=== PATIENT | male | born 1965 | race Caucasian/White ===

== ENCOUNTER 2019-01-15 06:59 | Inpatient (IN) ==
--- NOTE | 2018-12-16 17:20 | PAT Medication Instructions ---
Medication Instructions Date of Service December 17, 2018 Home Medications multivit with min-folic acid-lutein 400 mcg-250 mcg chewable tablet 1 tab PO QAM omega-3 fatty acids 1,000 mg capsule 1,000 mg PO QAM calcium carbonate-vitamin D3 [Calcium 600 + D(3)] 2 cap PO QAM [id number]-bosw [Osteo Bi-Flex Triple Strength] 2 tab PO QAM STOP taking 2 weeks before surgery multivit with min-folic acid-lutein 400 mcg-250 mcg chewable tablet 1 tab PO QAM omega-3 fatty acids 1,000 mg capsule 1,000 mg PO QAM [id number] [Osteo Bi-Flex Triple Strength] 2 tab PO QAM DO NOT take the morning of surgery calcium carbonate-vitamin D3 [Calcium 600 + D(3)] 2 cap PO QAM Take morning of surgery NOTHING TO EAT OR DRINK AFTER MIDNIGHT Other Notes If you have any questions please call us at [phone] or [phone] or [phone] or [phone]
--- NOTE | 2018-12-17 12:06 | Anesthesiology Consultation ---
Date of Service December 17, 2018 Assessment & Plan (1) Encounter for pre-operative examination: - No previous anesthesia records available. Chart Review Chart Review: Acceptable Risk for Surgery (Pending medical clearance from PCP on 12/25. Otherwise acceptable risk for surgery) and Patient seen in Pre Admission Testing Consults Requested medical (Dr. Silverman (12/25)) Teaching & Discussion Pre-Anesthesia Teaching/Discussion Notes: Instructed NPO after midnight before surgery, except medications with 15 cc of water. Medication instructions provided according to the PAT guidelines. History Surgery Operation Date: 01/15/19 09:05 Proposed Procedures p Left Total Hip Arthroplasty - Vargas Capellan MD Height/Weight Height: 6 ft Weight: 109.7 kg Allergies Allergy/AdvReac Type Severity Reaction Status Date / Time No Known Allergies Allergy Verified 12/10/18 09:09 Medications Home Medications Medication Instructions Recorded Confirmed Last Taken multivit with min-folic 1 tab PO QAM 10/13/18 12/10/18 Unknown acid-lutein 400 mcg-250 mcg chewable tablet omega-3 fatty acids 1,000 mg 1,000 mg PO QAM 10/13/18 12/10/18 Unknown capsule calcium carbonate-vitamin D3 2 cap PO QAM 12/10/18 12/10/18 Unknown [Calcium 600 + D(3)] [id number]-bosw 2 tab PO QAM 12/10/18 12/10/18 Unknown [Osteo Bi-Flex Triple Strength] Past Medical History Medical History Knee pain RIGHT = PER PT HE IS HAVING PLASMA REPLACEMENT PROCEDURE DONE IN OFFICE BEFORE SURGERY. DR CAPELLAN IS AWARE Osteoarthritis Retinal defect LEFT EYE Exercise / Class Metabolic Activity 1 > 8 Run/Swim/Ski/Tennis (Average 6 miles per day walking. Works out 5 days per week. Cares for parents. Does yard work. Can climb FOS. Denies CP or SOB with activity. ) Past Family History Family History Father Familial hemochromatosis Kidney stones Lung disease Mother Hypertension Aunt Breast cancer Past Surgical History Surgical History History of colonoscopy No pertinent past surgical history Past Anesthesia History No Hx of Anesthesia Complications and No Family Hx of Anesthesia Complications History of PONV No Hx of PONV and No Hx of Motion Sickness Social History Smoking Status: Never smoker Do You Dip or Chew Tobacco: Yes (Advised) Hx Alcohol Use: Yes Alcohol type: beer alcohol intake frequency: a few times a week Hx Substance Use: No Review of Systems Patient denies chest pain, shortness of breath, dyspnea on exertion, reflux, cough, wheezing, palpitations. +Joint Pain (Knee, Hip) Physical Exam Vital Signs BP: 129/87 P: 52 R: 16 T: 97.8 SPO2: 97% on RA ENMT Thyromental Distance: > or= 3.5 Finger Breadths (4) Mallampati Class: I Neck normal visual inspection and + facial hair; neck extension not limited Respiratory normal respiratory effort Auscultation: lungs clear to auscultation bilaterally Cardiovascular Rate/Rhythm: regular rate and regular rhythm Heart Sounds: no murmur Neurologic moves all extremities Psychiatric Orientation: alert and oriented x 3 Testing Laboratory Results 12/17/18 12:37 12/17/18 12:37 PT 10.3 Seconds (9.0-12.0) 12/17/18 12:37 INR 1.0 (0.9-1.1) 12/17/18 12:37 APTT 25.6 Seconds (21.0-31.0) 12/17/18 12:37 Hemoglobin A1c 5.4 % (4.5-5.6) 12/17/18 12:37 Urine Color Dark Yellow 12/17/18 Unknown Urine Appearance Clear (Clear) 12/17/18 Unknown Urine pH 5.0 (4.5-7.5) 12/17/18 Unknown Ur Specific [place] 1.026 (1.000-1.030) 12/17/18 Unknown Urine Protein Negative (Negative) 12/17/18 Unknown Urine Glucose (UA) Negative (Negative) 12/17/18 Unknown Urine Ketones Negative (Negative) 12/17/18 Unknown Urine Nitrite Negative (Negative) 12/17/18 Unknown Ur Leukocyte Esterase Negative (Negative) 12/17/18 Unknown Blood Type A Positive 12/17/18 12:37 Antibody Screen NEGATIVE 12/17/18 12:37 12/17/18 Unknown Urine Culture - Preliminary Urine,Clean Catch No growth - Less than 1,000 colonies/mL, Final report to follow. 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 States that he has always been bradycardic on yearly EKGs for work)
[2018-12-17 14:09] LABS: Basophils # (auto) 0.01 K/uL (0-0.2); Basophils % (auto) 0.2 %; Eosinophils # (auto) 0.05 K/uL (0-0.5); Eosinophils % (auto) 0.9 %; Hematocrit (blood only) 45.4 % (42-52); Immature Granulocytes # (auto) 0.02 K/uL (0.00-0.02); Immature Granulocytes % (auto) 0.4 %; Lymphocytes # (auto) 1.77 K/uL (1.2-3.4); Lymphocytes % (auto) 32.3 %; Mean Corpuscular Hemoglobin 31.2 pg (25-34); Mean Corpuscular Hgb Conc 35.2 g/dL (32-36); Mean Corpuscular Volume 88.5 fL (80-100); Mean Platelet Volume 10.5 fL (7.4-10.4); Monocytes # (auto) 0.55 K/uL (0.11-0.59); Neutrophils # (auto) 3.08 K/uL (1.4-6.5); Neutrophils % (auto) 56.2 %; Platelet Count 275 K/uL (130-400); RDW Coefficient of Variation 12.4 % (11.5-14.5); RDW Standard Deviation 39.7 fL (36.4-46.3); Red Blood Count 5.13 M/uL (4.7-6.1); White Blood Count 5.48 K/uL (4.8-10.8)
[2018-12-17 14:15] LABS: Estimated Average Glucose 108 mg/dl; Hemoglobin A1C 5.4 % (4.5-5.6)
[2018-12-17 14:21] LABS: Albumin Level 3.8 gm/dl (3.4-5.0); BUN Creatinine Ratio 14.8 (10-20); Calcium 8.9 mg/dl (8.5-10.1); Creatinine Clr Calc Pharmacy 104.7 ml/min; Est GFR (African American) 95.5; Est GFR (Non-African American) 82.4; Potassium 4.5 mmol/L (3.5-5.1)
[2018-12-17 14:24] LABS: Albumin Globulin Ratio 1.1 (0.9-2); Bilirubin,Total 0.7 mg/dl (0.2-1); Globulin 3.6 gm/dl (2.5-4.0); Total Protein 7.4 gm/dl (6.4-8.2)
[2018-12-17 14:28] LABS: Partial Thromboplastin Ratio 0.9; Partial Thromboplastin Time 25.6 Seconds (21.0-31.0); Prothrombin Time 10.3 Seconds (9.0-12.0)
[2018-12-17 14:39] LABS: Appearance Urine Clear (Clear); Bilirubin Urine Negative (Negative); Blood Urine Negative (Negative); Color Urine Dark Yellow; Glucose Urine UA Negative (Negative); Ketones Urine Negative (Negative); Leukocyte Esterase Urine Negative (Negative); Nitrite Urine Negative (Negative); Protein Urine Negative (Negative); Specific Gravity Urine 1.026 (1.000-1.030); Urobilinogen Urine Negative (Negative)
--- NOTE | 2018-12-17 15:10 | History & Physical Report ---
Date of Service December 17, 2018 Assessment & Plan (1) Primary osteoarthritis of left hip: DIAGNOSIS: Left hip osteoarthritis. PROCEDURE: Left total hip arthroplasty. PLAN: The patient is scheduled to undergo this procedure at [facility] as an inpatient on January 15, 2018. Risks and complications of the procedure, such as infection, bleeding, pain, scarring, nerve, blood vessel damage, weakness, wound problems, stiffness, incomplete relief of symptoms, hardware failure, hardware loosening, wear, fracture, tendon or ligament injury, dislocation, leg length inequality, blood clots, embolism, heart attack, stroke, and were explained to patient by Dr. Hutton at his visit on October 24. Informed consent to perform the procedure was obtained at that time. We will also obtain preoperative medical clearance from the patient's primary care provider, Dr. Silverman, along with preoperative CBC with differential, complete metabolic panel, PT, INR, blood type and screen, urinalysis, urine culture, EKG, hemoglobin A1c, and a nasal culture for MRSA. The patient states he has an appointment with anesthesia for clearance this afternoon and will obtain necessary testing at that time. States that he sees Dr. Silverman in the next few weeks and will have him sign off on the surgery. The patient was advised that he will be provided with prescription for pain medication and anti-inflammatory agents upon discharge from the hospital. I advised him that he will meet with case management to decide on postoperative rehabilitation be it outpatient or in-home therapy. He states he does have a walker he will bring with him on the day of surgery. He states that he had already purchase most of the things that are included in the hip kit. Additional things that he will purchase for the procedure. Have provided him with paperwork for handicap placadrian to use for 6 months postoperatively. We discussed the use of antibiotics prior to dental procedures after joint replacement surgery. I also provided him with information about lectures offered by [facility] in regards to joint replacement surgery. The patient a list of questions that he brought with him that were answered during today's visit. He is very appreciative of the care that he received in our clinic today, verbalized understanding of all information provided, and states if he or his have any other additional questions, they will contact the clinic accordingly. History of Present Illness Chief Complaint: Left hip pain Primary Care Provider: Howard Silverman MD HISTORY OF PRESENT ILLNESS: This 53-year-old male presents to clinic today for his preoperative history and physical. The patient complains of a 1-plus-year history of persistent left hip pain that is most localized to his anterior groin area. The patient states that he has been evaluated in our clinic by Dr. Whitehead, had physical therapy for several months, used oral nonsteroidal agents, and had a steroid injection into his hip. He states that all of these regimens provided minimal relief. 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 The patient states that the pain has become constant and it is affecting his activities of daily living. PAST MEDICAL HISTORY: None. PAST SURGICAL HISTORY: Colonoscopy and wisdom tooth extraction. FAMILY HISTORY: Positive for hypertension, osteoarthritis, and cancer. ALLERGIES: The patient has no known drug allergies. CURRENT MEDICATIONS: Aleve 220 mg tablets as needed for pain. SOCIAL HISTORY: The patient denies a history of tobacco or illicit drug use. States that he consumes between 5 and 6 alcoholic beverages per week. Allergies Allergy/AdvReac Type Severity Reaction Status Date / Time No Known Allergies Allergy Verified 12/10/18 09:09 Home Medications Home Medications Medication Instructions Recorded Confirmed Type multivit with min-folic 1 tab PO QAM 10/13/18 12/10/18 History acid-lutein 400 mcg-250 mcg chewable tablet omega-3 fatty acids 1,000 mg 1,000 mg PO QAM 10/13/18 12/10/18 History capsule calcium carbonate-vitamin D3 2 cap PO QAM 12/10/18 12/10/18 History [Calcium 600 + D(3)] [id number]-bosw 2 tab PO QAM 12/10/18 12/10/18 History [Osteo Bi-Flex Triple Strength] Past Med/Surg History Medical History Knee pain RIGHT = PER PT HE IS HAVING PLASMA REPLACEMENT PROCEDURE DONE IN OFFICE BEFORE SURGERY. DR CAPELALN IS AWARE Osteoarthritis Retinal defect LEFT EYE Surgical History History of colonoscopy No pertinent past surgical history Family History Father Familial hemochromatosis Kidney stones Lung disease Mother Hypertension Aunt Breast cancer Social History Preferred Language: Swedish Communication Ability: Effective Beliefs That Will Affect Care: None Current Living Situation: Spouse Feels Safe at Home: Yes Smoking Status: Never smoker Second Hand Exposure: No ; Hx Alcohol Use: Yes Alcohol type: beer Hx Substance Use: No Review of Systems All systems reviewed & are unremarkable except as noted in HPI & below Physical Exam Physical Exam: PHYSICAL EXAMINATION: Skin: The patient's skin is normal in appearance. No open skin lesions or discharge. Eyes: Pupils are equal and reactive to light and accommodating. Extraocular movements are intact. Throat: Posterior pharynx is clear with absence of edema, erythema or exudate. Cardiovascular exam: The patient has a regular rate and rhythm, no murmurs or gallops appreciated. Lungs: Auscultation of lung hassan reveals clear breath sounds throughout. No wheeze, rales, or rhonchi. Abdomen is nonobese, nondistended, nontender with normoactive bowel sounds. Extremities: Left hip flexion is to 105 degrees, external rotation to 40 degrees, and internal rotation to 0 degrees. Impingement and Scour tests are both positive. Stinchfield test is equivocal. EVELINA test is 3-1/2 fists with referred pain to the groin area. Log roll test is negative. The patient's quad strength is 5/5. He has no tenderness over the greater trochanter of the femur, no tenderness over the posterior or lateral aspect of the hip. There is some mild crepitation with range of motion. Otherwise, he is neurovascularly intact in the left lower extremity. Neurological exam: Cranial nerves 2-12 are intact. No motor or sensory deficit. Psychological/general exam: The patient is alert and oriented x3 with proper grooming and hygiene. Results & Data Laboratory Results 12/17/18 12/17/18 12/17/18 Range/Units Unknown Unknown 12:37 WBC (4.8-10.8) K/uL RBC (4.7-6.1) M/uL Hgb (14.0-18.0) g/dL Hct (42-52) % MCV (80-100) fL MCH (25-34) pg MCHC (32-36) g/dL RDW Std Deviation (36.4-46.3) fL RDW Coeff of Tez (11.5-14.5) % Plt Count (130-400) K/uL MPV (7.4-10.4) fL Immature Gran % (Auto) % Neut % (Auto) % Lymph % (Auto) % [place] % (Auto) % Eos % (Auto) % Baso % (Auto) % Immature Gran # (Auto) (0.00-0.02) K/uL Neut # (Auto) (1.4-6.5) K/uL Lymph # (Auto) (1.2-3.4) K/uL [place] # (Auto) (0.11-0.59) K/uL Eos # (Auto) (0-0.5) K/uL Baso # (Auto) (0-0.2) K/uL PT (9.0-12.0) Seconds INR (0.9-1.1) APTT (21.0-31.0) Seconds PTT Ratio Sodium (136-145) mmol/L Potassium (3.5-5.1) mmol/L Chloride (98-107) mmol/L Carbon Dioxide (21-32) mmol/L Anion Gap (3-11) BUN (7-18) mg/dl Creatinine (0.6-1.4) mg/dl Est Cr Clr Drug Dosing ml/min Est GFR ( Amer) Est GFR (Non-Af Amer) BUN/Creatinine Ratio (10-20) Glucose (70-99) mg/dl Estimat Average Glucose mg/dl Hemoglobin A1c (4.5-5.6) % Calcium (8.5-10.1) mg/dl Total Bilirubin (0.2-1) mg/dl AST (15-37) U/L ALT (12-78) U/L Alkaline Phosphatase (45-117) U/L Total Protein (6.4-8.2) gm/dl Albumin (3.4-5.0) gm/dl Globulin (2.5-4.0) gm/dl Albumin/Globulin Ratio (0.9-2) Urine Color Dark Yellow Urine Appearance Clear (Clear) Urine pH 5.0 (4.5-7.5) Ur Specific [place] 1.026 (1.000-1.030) Urine Protein Negative (Negative) Urine Glucose (UA) Negative (Negative) Urine Ketones Negative (Negative) Urine Blood Negative (Negative) Urine Nitrite Negative (Negative) Urine Bilirubin Negative (Negative) Urine Urobilinogen Negative (Negative) Ur Leukocyte Esterase Negative (Negative) Nasal Screen MRSA (PCR) Pending Blood Type Pending Antibody Screen Pending 12/17/18 12/17/18 12/17/18 Range/Units 12:37 12:37 12:37 WBC (4.8-10.8) K/uL RBC (4.7-6.1) M/uL Hgb (14.0-18.0) g/dL Hct (42-52) % MCV (80-100) fL MCH (25-34) pg MCHC (32-36) g/dL RDW Std Deviation (36.4-46.3) fL RDW Coeff of Tez (11.5-14.5) % Plt Count (130-400) K/uL MPV (7.4-10.4) fL Immature Gran % (Auto) % Neut % (Auto) % Lymph % (Auto) % [place] % (Auto) % Eos % (Auto) % Baso % (Auto) % Immature Gran # (Auto) (0.00-0.02) K/uL Neut # (Auto) (1.4-6.5) K/uL Lymph # (Auto) (1.2-3.4) K/uL [place] # (Auto) (0.11-0.59) K/uL Eos # (Auto) (0-0.5) K/uL Baso # (Auto) (0-0.2) K/uL PT 10.3 (9.0-12.0) Seconds INR 1.0 (0.9-1.1) APTT 25.6 (21.0-31.0) Seconds PTT Ratio 0.9 Sodium 140 (136-145) mmol/L Potassium 4.5 (3.5-5.1) mmol/L Chloride 106 (98-107) mmol/L Carbon Dioxide 28 (21-32) mmol/L Anion Gap 6.0 (3-11) BUN 15 (7-18) mg/dl Creatinine 1.02 (0.6-1.4) mg/dl Est Cr Clr Drug Dosing 104.7 ml/min Est GFR ( Amer) 95.5 Est GFR (Non-Af Amer) 82.4 BUN/Creatinine Ratio 14.8 (10-20) Glucose 94 (70-99) mg/dl Estimat Average Glucose 108 mg/dl Hemoglobin A1c 5.4 (4.5-5.6) % Calcium 8.9 (8.5-10.1) mg/dl Total Bilirubin 0.7 (0.2-1) mg/dl AST 18 (15-37) U/L ALT 28 (12-78) U/L Alkaline Phosphatase 67 (45-117) U/L Total Protein 7.4 (6.4-8.2) gm/dl Albumin 3.8 (3.4-5.0) gm/dl Globulin 3.6 (2.5-4.0) gm/dl Albumin/Globulin Ratio 1.1 (0.9-2) Urine Color Urine Appearance (Clear) Urine pH (4.5-7.5) Ur Specific [place] (1.000-1.030) Urine Protein (Negative) Urine Glucose (UA) (Negative) Urine Ketones (Negative) Urine Blood (Negative) Urine Nitrite (Negative) Urine Bilirubin (Negative) Urine Urobilinogen (Negative) Ur Leukocyte Esterase (Negative) Nasal Screen MRSA (PCR) Blood Type Antibody Screen 12/17/18 Range/Units 12:37 WBC 5.48 (4.8-10.8) K/uL RBC 5.13 (4.7-6.1) M/uL Hgb 16.0 (14.0-18.0) g/dL Hct 45.4 (42-52) % MCV 88.5 (80-100) fL MCH 31.2 (25-34) pg MCHC 35.2 (32-36) g/dL RDW Std Deviation 39.7 (36.4-46.3) fL RDW Coeff of Tez 12.4 (11.5-14.5) % Plt Count 275 (130-400) K/uL MPV 10.5 H (7.4-10.4) fL Immature Gran % (Auto) 0.4 % Neut % (Auto) 56.2 % Lymph % (Auto) 32.3 % [place] % (Auto) 10.0 % Eos % (Auto) 0.9 % Baso % (Auto) 0.2 % Immature Gran # (Auto) 0.02 (0.00-0.02) K/uL Neut # (Auto) 3.08 (1.4-6.5) K/uL Lymph # (Auto) 1.77 (1.2-3.4) K/uL [place] # (Auto) 0.55 (0.11-0.59) K/uL Eos # (Auto) 0.05 (0-0.5) K/uL Baso # (Auto) 0.01 (0-0.2) K/uL PT (9.0-12.0) Seconds INR (0.9-1.1) APTT (21.0-31.0) Seconds PTT Ratio Sodium (136-145) mmol/L Potassium (3.5-5.1) mmol/L Chloride (98-107) mmol/L Carbon Dioxide (21-32) mmol/L Anion Gap (3-11) BUN (7-18) mg/dl Creatinine (0.6-1.4) mg/dl Est Cr Clr Drug Dosing ml/min Est GFR ( Amer) Est GFR (Non-Af Amer) BUN/Creatinine Ratio (10-20) Glucose (70-99) mg/dl Estimat Average Glucose mg/dl Hemoglobin A1c (4.5-5.6) % Calcium (8.5-10.1) mg/dl Total Bilirubin (0.2-1) mg/dl AST (15-37) U/L ALT (12-78) U/L Alkaline Phosphatase (45-117) U/L Total Protein (6.4-8.2) gm/dl Albumin (3.4-5.0) gm/dl Globulin (2.5-4.0) gm/dl Albumin/Globulin Ratio (0.9-2) Urine Color Urine Appearance (Clear) Urine pH (4.5-7.5) Ur Specific [place] (1.000-1.030) Urine Protein (Negative) Urine Glucose (UA) (Negative) Urine Ketones (Negative) Urine Blood (Negative) Urine Nitrite (Negative) Urine Bilirubin (Negative) Urine Urobilinogen (Negative) Ur Leukocyte Esterase (Negative) Nasal Screen MRSA (PCR) Blood Type Antibody Screen
[~2019-01-15 06:59] MED LIST: ACETAMINOPHEN 500 MG TAB PO SCH; BUPIVACAINE 0.5 % 5 MG/1 ML PF 10ML VIAL ONE; CEFAZOLIN 3000MG 72.5 ML IV SCH; CeleBREX 200 MG CAP PO SCH; FAMOTIDINE 20 MG TAB PO SCH; LR 500ML BOLUS IV SCH; LR 500ML BOLUS, THEN 15ML/HR IV SCH; LR 60ML/HR IV SCH; METOCLOPRAMIDE HCL 10 MG TABLET PO SCH; ROPIVACAINE 0.5% HCL/PF 150 MG, BUPIVACAINE 0.5% MPF 30 ML, EPINEPHrine 0.15 MG, Ketoro... INFIL SCH; SCOPOLAMINE 1.5 MG TDSY TD SCH; TRAMADOL HCL 50 MG TABLET PO SCH; TRANEXAMIC ACID 1,000 MG **IV Intra-op IV SCH; TRANEXAMIC ACID 1,000 MG **IV Pre-op IV SCH; dexAMETHasone 4 MG TAB PO SCH
[2019-01-15] MEDS ORDERED: LIDOCAINE HCL 2% 2 ML VIAL/AMP(20MG/ML) INFIL ONE (08:13)
[2019-01-15] MEDS ORDERED: PROPOFOL IV EMULSION 10 MG/ML 20 ML VIAL IV ONE ×2 (08:13→11:03)
[2019-01-15] MEDS ORDERED: MIDAZOLAM HCL 1 MG/ML 2ML VIAL ONE ×3 (08:13→09:48)
[2019-01-15] MEDS ORDERED: PHENYLEPHRINE 100MCG/ML 5ML SYR IV PRN (08:40)
[2019-01-15] MEDS ORDERED: HYDROmorphone INJ 1 MG/ML SYRINGE IV PRN (08:40)
[2019-01-15] MEDS ORDERED: ePHEDrine sulfate 50 MG/ML AMP IV PRN (08:40)
[2019-01-15] MEDS ORDERED: ONDANSETRON INJ 2 MG/ML 2 ML VIAL IV PRN ×2 (08:40→11:17)
[2019-01-15] MEDS ORDERED: KETOROLAC 30 MG/ML VIAL IV PRN (08:40)
[2019-01-15] MEDS ORDERED: ATROPINE SULFATE 0.1 MG/ML 10ML SYR IV PRN (08:40)
--- NOTE | 2019-01-15 09:13 | History & Physical Bridge Note ---
Date of Service January 15, 2019 History & Physical Bridge Note I have examined the patient, reviewed the History & Physical and in the interval since the performance of the History & Physical I have noted the following changes of clinical significance: no changes noted
[2019-01-15] MEDS ORDERED: BACITRACIN INJ 50,000 UNIT VIAL ONE (09:17)
[2019-01-15] MEDS ORDERED: ORTHO JOINT ANESTHETIC ONE (09:17)
[2019-01-15] MEDS ORDERED: HydrALAZINE HCL 20 MG/ML VIAL ONE (10:22)
[2019-01-15] MEDS ORDERED: TRAMADOL HCL 50 MG TABLET PO PRN (11:17)
[2019-01-15] MEDS ORDERED: NALOXONE HCL 0.4 MG/1 ML VIAL/CARP IV PRN (11:17)
[2019-01-15] MEDS ORDERED: ALUMINUM/MAGNESIUM SUSP 30 ML UDC PO PRN (11:17)
[2019-01-15] MEDS ORDERED: OXYCODONE HCL IR 5 MG TAB (IMMEDIATE RELEASE) PO PRN (11:17)
[2019-01-15] MEDS ORDERED: MAGNESIUM HYDROXIDE SUSP 30 ML UDC PO PRN (11:17)
[2019-01-15] MEDS ORDERED: BISACODYL 10 MG SUPP PR PRN (11:17)
[2019-01-15] MEDS ORDERED: METOCLOPRAMIDE HCL INJ 5 MG/ML 2 ML VIAL IV PRN (11:17)
[2019-01-15] MEDS ORDERED: DiphenhydrAMINE HCL 50 MG/ML VIAL IV PRN (11:17)
[2019-01-15] MEDS ORDERED: HYDROmorphone INJ 0.5 MG/0.5 ML SYR IV PRN (11:17)
[2019-01-15] MEDS ORDERED: TAMSULOSIN HCL 0.4 MG CAP PO PRN (11:17)
--- NOTE | 2019-01-15 11:17 | Operative Report ---
Post Operative Report Pre & Post Diagnosis Operation Date: 01/15/19 09:35 Pre-Op Diagnosis: Left hip osteoarthritis Post-Op Diagnosis: Left hip osteoarthritis Procedure Operation Date: 01/15/19 09:35 Actual Procedures p Left Total Hip Arthroplasty, uncemented, Depuy(Left) - Vargas David MD Surgeon Vargas David MD Sales Teacher Mariana Lerma PA-C Estimated Blood Loss 500 Findings Consistent with Post-Op Diagnosis Specimens Left femoral head Complications none Disposition Accompanied Patient To Recovery: Yes Disposition: Recovery Room Description of Procedure I was present during the entire case assisting with wound closure and dressing application. Please see Dr. David procedure note for specifics of the case. I attest to the content of the Intraoperative Record and any orders documented therein. Any exceptions are noted below.
--- NOTE | 2019-01-15 11:20 | Post Operative Brief Note ---
Immediate Post Op Note v1 Date of Surgery January 15, 2019 Pre & Post Diagnosis Operation Date: 01/15/19 09:35 Pre-Op Diagnosis: Left hip osteoarthritis Post-Op Diagnosis: Left hip osteoarthritis Procedure Operation Date: 01/15/19 09:35 Actual Procedures p Left Total Hip Arthroplasty, uncemented, Depuy(Left) - Vargas David MD Surgeon Vargas David MD Furniture Stainer Mariana Lerma PAJoshua Estimated Blood Loss 500 Findings Consistent with Post-Op Diagnosis Fluids 1800 cc Specimens Femoral head Anesthesia Type Spinal MAC Complications none Disposition Accompanied Patient To Recovery: No Disposition: Recovery Room
--- NOTE | 2019-01-15 11:43 | XRay Report ---
XR hip 1V LT w pelvis CLINICAL HISTORY: IN PACU - A/P PELVIS and LATERAL HIP hip replacement COMPARISON: 12/17/2018 DISCUSSION: Total left hip arthroplasty. Could contact between prosthetic and underlying bone. No patty dence for acetabular protrusion. Postoperative soft tissue change as expected IMPRESSION: Anatomic alignment posttotal left hip arthroplasty. The above report was generated using voice recognition software. It may contain grammatical, syntax or spelling errors. Electronically signed by: Fernando Elliott M.D. 01/15/2019 11:42 AM
--- NOTE | 2019-01-15 11:45 | Anesthesiology Progress Note ---
Date of Service January 15, 2019 Anesthesia Post Procedure Vital Signs Vital Signs: Temp Pulse Pulse Resp BP Pulse Ox 01/15/19 11:35 56 L 19 102/53 L 97 01/15/19 11:25 58 L 17 101/60 100 01/15/19 11:17 36 C L 66 13 102/59 L 95 01/15/19 07:45 36.4 C L 53 L 20 123/82 95 Transfer of Care Handoff Completed per policy Notes Mental Status: alert / awake / arousable Patient Amnestic to Procedure: Yes Nausea / Vomiting: adequately controlled Pain: adequately controlled Airway Patency, RR, SpO2: stable & adequate BP & HR: stable & adequate Hydration State: stable & adequate Neuraxial Anesthesia: was administered and sensory block is resolving Anesthetic Complications: no major complications apparent
--- NOTE | 2019-01-15 11:49 | Operative Report ---
DATE OF OPERATION: 01/15/2019 PREOPERATIVE DIAGNOSIS: Left hip osteoarthritis. POSTOPERATIVE DIAGNOSIS: Left hip osteoarthritis. OPERATIONS PERFORMED: Left total hip arthroplasty. SURGEON: Vargas David MD. PARACHUTE CUSHION INSTALLER: Dr. Vasyl Lerma. ESTIMATED BLOOD LOSS: 500 mL. IV FLUIDS: 1800 mL of crystalloid. SPECIMENS: Femoral head. INDICATIONS: The patient is a 53-year-old gentleman who has had left hip pain that has been refractory to conservative management. X-rays show near complete loss of his superolateral joint space, large Cam deformity. Exam is significant for a severe restricted range of motion consistent with osteoarthritis. I had a long discussion with him about the risks and benefits of surgery, alternatives to surgery and expected outcomes. After reviewing all these, he elected to proceed with surgery. All questions were answered. Informed consent was signed. OPERATIVE FINDINGS: Degenerative osteoarthritis of the hip. Ceramic and polyethylene total hip arthroplasty was performed through a posterior approach. DESCRIPTION OF THE OPERATION: The patient was identified in the preoperative holding area where his surgical site was marked. He was given a spinal anesthetic and brought back to main Operating Room where he was placed on the Operating Room table and moved in the lateral decubitus position. All bony prominences were padded. Axillary roll was placed. He was prepped and draped in normal sterile fashion. Prior to incision, a multidisciplinary timeout was called. All in the room were in agreement. We began by making a 14 cm long incision for a posterior approach to the hip. The fascia was incised in line with the incision. Charnley bow was placed. The quadratus femoris short external rotators and piriformis were dissected off the posterior aspect of the hip. Box cut was placed in the capsule. The femoral head was dislocated. A neck cut was made at 12 mm, which was our preoperative template. Prior to this, we did measure his lesser troch to center of the head distance which was a 62 mm. We then exposed the acetabulum. The contents of cotyloid fossa and the labrum were excised. We then began reaming. We reamed him all the way up to a size 58 cup. This gave us a good cancellous bleeding bone circumferentially. The acetabulum was then irrigated out. A 58 mm outer diameter Gription cup was impacted down into position with 25 degrees of anteversion and 45 degrees of lateral opening. Single cancellous bone screw was placed up into the ilium measuring 35 mm in length. Excellent fixation was obtained. The polyethylene liner for a 36 mm femoral head was then placed and impacted into position. The locking mechanism was checked to ensure that it had engaged, which it had. We then exposed the femoral neck. Cookie cutter was used followed by the intramedullary guide and a lateralizing reamer. We then used the intramedullary reamers and reamed him all the way up to a size 7. We then broached him up. We initially trialled him with the 6 broach, but there was not adequate leg lengths or torsional stability with this. We therefore went up to the size 7 broach, which gave us excellent torsional stability and was flush with our neck cut. We trialed him with a +5 head which gave symmetric leg lengths. No impingement in extension and external rotation and stable in the sleeper position. At 90 degrees of hip flexion, he could be internally rotated 45 degrees before leaving out of the cup. I was very happy with the stability exam. Of note, this was with a high offset neck. We therefore removed our trial femoral components. The femoral canal was irrigated. The real size 7 high offset stem was opened up and impacted down. It sat at the same level as the broach. Therefore, we opened up the +5 ceramic femoral head. This was gently tapped on to the trunnion and the hip was atraumatically reduced. At this point, the wound was irrigated out with dilute Betadine solution. The periarticular injection cocktail was placed into the hip. We then repaired the capsule and short external rotators using #2 Vicryl through bone tunnels in the posterior aspect of the greater trochanter. Of note, we did check at the lesser troch to center head distance with a trial in place was matching that of his lummi femoral head at 62 mm. We then ran the fascia with a looped #1 PDS suture. A #1 PDS was used for the subcutaneous layers. A 2-0 Vicryl was used for the deep dermal layer. A ZipLine was used for the skin. Silverlon dressing was placed followed by compressive dressing. The patient had a sedation lifted, was rolled supine and transferred to the Recovery Room in stable condition. POSTOPERATIVE COURSE: The patient will be admitted overnight for pain control and monitoring. He will be on aspirin for DVT prophylaxis. Posterior hip precautions, weightbearing as tolerated. I attest to the content of the Intraoperative Record and any orders documented therein. Any exceptions are noted below. MTDD
[2019-01-15] MEDS ORDERED: SODIUM CHLORIDE 0.9% 1000ML 1,000 ML IV SCH (12:30)
[2019-01-15] MEDS: KETOROLAC 30 MG/ML VIAL IV SCH ×2 (13:59→20:00)
[2019-01-15] MEDS: ACETAMINOPHEN 500 MG TAB PO SCH ×2 (13:59→21:37)
[2019-01-15] MEDS: CHECK SCOPOLAMINE PATCH PLACEMENT SCH (15:56)
[2019-01-15] MEDS ORDERED: TRANEXAMIC ACID 1,000 MG in 0.9 % SODIUM CHLORIDE 100 ML IV SCH (17:30)
[2019-01-15] MEDS: CEFAZOLIN 2000MG 2,000 MG/15 ML SYR IV SCH (17:49)
[2019-01-15] MEDS: ASPIRIN 81 MG ECTAB PO SCH (20:30)
[2019-01-15] MEDS: DOCUSATE SODIUM 100 MG CAP PO SCH (20:30)
[2019-01-15] MEDS ORDERED: SENNA 8.6 MG TAB PO SCH (21:00)
[2019-01-16] MEDS: CHECK SCOPOLAMINE PATCH PLACEMENT SCH (00:05)
[2019-01-16] MEDS: CEFAZOLIN 2000MG 2,000 MG/15 ML SYR IV SCH (02:58)
[2019-01-16] MEDS: KETOROLAC 30 MG/ML VIAL IV SCH ×2 (02:58→07:48)
[2019-01-16] MEDS: ACETAMINOPHEN 500 MG TAB PO SCH (05:42)
[2019-01-16 06:08] LABS: Hematocrit (blood only) 36.9 % (42-52); Hemoglobin 12.7 g/dL (14.0-18.0); Immature Granulocytes # (auto) 0.03 K/uL (0.00-0.02); Immature Granulocytes % (auto) 0.2 %; Lymphocytes # (auto) 1.69 K/uL (1.2-3.4); Mean Corpuscular Hemoglobin 30.8 pg (25-34); Mean Corpuscular Hgb Conc 34.4 g/dL (32-36); Mean Corpuscular Volume 89.3 fL (80-100); Mean Platelet Volume 10.3 fL (7.4-10.4); Monocytes # (auto) 1.59 K/uL (0.11-0.59); Monocytes % (auto) 12.3 %; Neutrophils # (auto) 9.65 K/uL (1.4-6.5); Neutrophils % (auto) 74.5 %; Platelet Count 239 K/uL (130-400); RDW Coefficient of Variation 12.5 % (11.5-14.5); Red Blood Count 4.13 M/uL (4.7-6.1); White Blood Count 12.96 K/uL (4.8-10.8)
[2019-01-16 06:37] LABS: BUN Creatinine Ratio 16.1 (10-20); Calcium 7.9 mg/dl (8.5-10.1); Creatinine Clr Calc Pharmacy 97.2 ml/min; Est GFR (African American) 86.2; Est GFR (Non-African American) 74.4; Potassium 4.1 mmol/L (3.5-5.1)
--- NOTE | 2019-01-16 07:32 | Orthopedic Progress Note ---
Date of Service January 16, 2019 Assessment & Plan (1) S/P hip replacement: PT/OT Discharge home if passes PT/OT. Follow-up 2 weeks Subjective Pain well controlled. Denies f/c/cp/sob/n/t. Physical Exam Physical Exam: NAD. Dressing c/d/i. NVI Results & Data Vital Signs (Past 12 Hours) Vital Signs Temp Pulse Resp BP Pulse Ox 01/16/19 02:57 36.7 C 52 L 16 112/65 94 01/15/19 23:13 36.7 C 54 L 16 129/68 94 01/15/19 19:45 36.7 C 61 16 122/74 95
[2019-01-16] MEDS ORDERED: dexAMETHasone 4 MG TAB PO SCH (08:00)
[2019-01-16] MEDS: DOCUSATE SODIUM 100 MG CAP PO SCH (08:47)
[2019-01-16] MEDS: ASPIRIN 81 MG ECTAB PO SCH (08:47)
[2019-01-16] MEDS ORDERED: MULTIVITAMIN TAB PO SCH (09:00)
[2019-01-16] MEDS ORDERED: GLUCOSAM CHON MSM1 C MANG BOSW PO SCH (09:00)
[2019-01-16] MEDS ORDERED: CEROVITE ADV FORMULA TAB PO SCH (09:00)
[2019-01-16] MEDS ORDERED: CALCIUM 600MG + VIT D 400 IU TAB PO SCH (09:00)
[2019-01-16] MEDS ORDERED: OMEGA-3 (PURIFIED FISH OIL) 1 GM CAP PO SCH ×2 (09:00)
[2019-01-16] MEDS ORDERED: CeleBREX 200 MG CAP PO SCH (21:00)
--- NOTE | 2019-01-19 12:51 | Discharge Summary ---
Date of Service January 19, 2019 Admission HPI Per Admitting Provider HISTORY OF PRESENT ILLNESS: This 53-year-old male presents to clinic today for his preoperative history and physical. The patient complains of a 1-plus-year history of persistent left hip pain that is most localized to his anterior groin area. The patient states that he has been evaluated in our clinic by Dr. Whitehead, had physical therapy for several months, used oral nonsteroidal agents, and had a steroid injection into his hip. He states that all of these regimens provided minimal relief. 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 The patient states that the pain has become constant and it is affecting his activities of daily living. PAST MEDICAL HISTORY: None. PAST SURGICAL HISTORY: Colonoscopy and wisdom tooth extraction. FAMILY HISTORY: Positive for hypertension, osteoarthritis, and cancer. ALLERGIES: The patient has no known drug allergies. CURRENT MEDICATIONS: Aleve 220 mg tablets as needed for pain. SOCIAL HISTORY: The patient denies a history of tobacco or illicit drug use. States that he consumes between 5 and 6 alcoholic beverages per week. Admission Exam Per Admitting Provider PHYSICAL EXAMINATION: Skin: The patient's skin is normal in appearance. No open skin lesions or discharge. Eyes: Pupils are equal and reactive to light and accommodating. Extraocular movements are intact. Throat: Posterior pharynx is clear with absence of edema, erythema or exudate. Cardiovascular exam: The patient has a regular rate and rhythm, no murmurs or gallops appreciated. Lungs: Auscultation of lung hassan reveals clear breath sounds throughout. No wheeze, rales, or rhonchi. Abdomen is nonobese, nondistended, nontender with normoactive bowel sounds. Extremities: Left hip flexion is to 105 degrees, external rotation to 40 degrees, and internal rotation to 0 degrees. Impingement and Scour tests are both positive. Stinchfield test is equivocal. EVELINA test is 3-1/2 fists with referred pain to the groin area. Log roll test is negative. The patient's quad strength is 5/5. He has no tenderness over the greater trochanter of the femur, no tenderness over the posterior or lateral aspect of the hip. There is some mild crepitation with range of motion. Otherwise, he is neurovascularly intact in the left lower extremity. Neurological exam: Cranial nerves 2-12 are intact. No motor or sensory deficit. Psychological/general exam: The patient is alert and oriented x3 with proper grooming and hygiene. Principal Diagnosis Left hip osteoarthritis Discharge Exam NAD. Dressing c/d/i. NVI Discharge Data Allergies Allergy/AdvReac Type Severity Reaction Status Date / Time No Known Allergies Allergy Verified 01/15/19 07:47 Consultations 01/16/19 08:00 Consult Case Management - Discharge Planning Routine Procedures Performed Operation Date: 01/15/19 09:35 Actual Procedures p Left Total Hip Arthroplasty, uncemented, Depuy(Left) - Vargas David MD Hospital Course (1) S/P hip replacement: Patient did well overnight. Pain well controlled with PO meds. Plan on discharge home after PT/OT today with in home rehab services. PT/OT Discharge home if passes PT/OT. Follow-up 2 weeks Total Time Total Time Spent Total Time Spent (In Minutes): 20 mins Total Time Includes: Examination of the Patient, Discharge Planning and Medication Reconciliation Discharge Plan Discharge Items Patient Disposition: Home - Home Health Services Reason For Visit: Left Hip Osteoarthritis Discharge Diagnosis: Left hip osteoarthritis Activity: As commented below Lifting: None Bathing: Keep incision dry Bathing Comment: May shower tomorrow Sexual Activity: Wait until after follow-up appointment Exercise/Sports: Wait until after follow-up appointment Driving/Machine Use: No driving until cleared by currency exchange specialist Weightbearing: Left weightbearing Weightbearing Comment: as tolerated with walker assistance Non-emergency contact: Primary Care Provider Call non-emergency contact if: you have any medication questions, your pain is not controlled, your temperature is above 101.5, your wound has increased redness and your wound has increased drainage Follow-up/Referrals: Gwen Garcia PA-C [Primary Care Provider] - Diet: Regular Addtl Attending Provider Instructions: Post-operative Instructions Dear Patient and Family/Friends, Before you are discharged from the hospital, it is important to know what to expect when you get home after surgery. To that end, we have created this sheet of discharge instructions which covers many commonly asked questions. Make sure you go through this sheet in its entirety with your nurse before you are discharged. Please note that we will go over the specifics of your surgery and recovery when you return for your first post-operative visit. Sincerely, Dr. David Medications 1. Oxycodone 5 mg: take 1-2 tabs by mouth every 4-6 hrs as needed for pain 2. Diclofenac Sodium 75 mg: take 1 tab twice daily for 30 days post operatively 3. Extra Strength Tylenol 500mg: Take 2 tabs every 6 hrs as needed for pain for 30 days post-op 4. Purchase Aspirin 81 m tab to be taken twice daily for 30 days post-op Pain Expect to be in a fair amount of pain after surgery. Remember, our goal is not to eliminate your pain, but to make it tolerable. It is a good idea to stay ahead of your pain by taking the medications you were prescribed once you get home. Typically, the pain starts improving 3-7 days after surgery. You should start weaning off the narcotic pain medication (oxycodone, hydrocodone, hydromorphone, morphine) as soon as your pain improves. Please call our office if your pain is not adequately controlled. Ice Ice your operative site at least 5 times a day for 15-30 minutes at a time. Make sure you have a thin cloth between the ice or cooling unit and your skin to prevent garrett bite. This is especially important if you received a nerve block. Continue icing your operative site for the first 5-7 days after surgery, then as needed. Diet/Nausea/Vomiting Start by drinking clear liquids and eating crackers. If you can tolerate this, then you may resume your normal diet. If you feel nauseated or vomit, take Zofran/ondansetron (if prescribed). Please call our office if you have intractable nausea or vomiting, or, if after hours, you may go to the Emergency Room for help. Constipation Constipation is a common side effect of narcotic pain medication. If you have not had a bowel movement within 2 days after surgery, we recommend purchasing an over the counter laxative such as Milk of Magnesia, Dulcolax, or Miralax from a local pharmacy, and taking it as instructed. Call our clinic if any questions. Nerve block The anesthesia team sometimes places a nerve block to help with post-operative pain control. This results in significant numbness and inability to move the extremity. The nerve block usually wears off in 8-12 hours, but sometimes can last up to 24 hours. Please call our office if you are still unable to move your extremity after 24 hours, unless you received a pain pump to take home. Nerve blocks typically wear off quickly, so start taking pain medication as soon as you start feeling soreness near your surgical site. Weight bearing and Range of Motion. Do not bear any weight through your operative extremity immediately after surgery. If you had upper extremity surgery, do not lift anything with that arm. If you are in a knee brace, keep it locked in place until your follow-up. We will discuss your weight bearing, range of motion, and lifting restrictions in detail at your first post-operative appointment. Continuous Passive Motion (CPM) Machine If you were prescribed a CPM machine, it will start after your first post- operative appointment, at which time we will give you instructions on the range of motion settings and duration of treatment Physical therapy You will be given a prescription for physical therapy or occupational therapy at your first post-operative appointment. Typically, patients start therapy within 1 week of surgery Wound care and showering We will inspect your wound at your first post-operative visit, and may do a dressing change at that time. Most patients will be in a water-proof dressing th at is removed 14 days after surgery. It is normal to see some dried blood on the dressing. Do not remove your dressing, paper strips or sutures yourself unless you are given permission. Showering is allowed the day after surgery. Do not scrub or remove any dressings. The wound should not be submerged underwater (i.e. in a bathtub or pool) until 4 weeks after surgery BLANKA stockings If you were given white stockings, these are to be worn at all times except to shower (on both legs) for the first 2 weeks after surgery. Driving You may not drive while taking narcotic pain medication or while in a cast, splint, sling or brace. You, the patient, need to make the final determination about when you are safe to drive, however, the earliest you may consider driving after surgery is below: Hand/Wrist/Elbow Surgery: 3 days Shoulder Surgery: 2 weeks Hip,/Knee/Ankle Surgery: 4 weeks Fracture repair: 6 weeks Return to Work Your return to work depends on what surgery was done and what type of work you do. Please bring any paperwork your employer needs completed to your first post-operative visit. Also, bring a description of your job duties, as this helps us to understand what risks you may face at work. Travel Avoid long distance travel (greater than 1 hour) in airplanes and cars for the first 6 weeks after surgery. If you must travel, you need to have a Doppler ultrasound done before you travel to rule out a blood clot in your legs. Follow-up You should have a follow-up appointment already scheduled 1-2 days after surgery. If not, please contact our office to make this appointment before you leave the hospital. When to call the office It is normal to have swelling and bruising in the limb that was operated on. This will improve with time. It is also normal to have fevers for the first 2 days after surgery. Reasons you should call your doctor include: Uncontrolled pain; Nausea, vomiting, or constipation that does not improve with medication; Fevers over 101.5, chills, sweats; Drainage or bleeding from the wound; Foul odor; Spreading areas of redness; Any other concerns Pending Studies at Discharge: No Stand-Alone Forms: My [facility], Opioid Pain Management Medications and DC Order Prescriptions: New diclofenac sodium 75 mg tablet,delayed release (DR/EC) 75 mg PO BID PRN (Reason: pain) 30 Days Qty: 60 RF: 1 oxycodone 5 mg tablet 5 mg PO Q6H MDD 2 tabs q 4-6 hrs prn pain PRN (Reason: pain) Qty: 30 RF: 0 Continued Centrum Silver 400-250 mcg tablet,chewable 1 tab PO QAM RF: 0 omega-3 fatty acids 1,000 mg capsule 1,000 mg PO QAM RF: 0 Calcium 600 + D(3) 600 mg calcium- 200 unit Capsule 2 cap PO QAM RF: 0 Osteo Bi-Flex Triple Strength 750 mg-644 mg- 30 mg-1 mg Tablet 2 tab PO QAM RF: 0 Discharge Orders: Discharge Order (Routine); Ordered 01/15/19 Ordered By: Earnest Ramsey/Other Patient Handouts: Surgery Prevent DVT After, Replacement Hip Home Safety, Replacement Hip At Home Admission Data Admit Date/Time: 01/15/19 11:17 Attending Provider: Vargas David Admit Provider: Vargas David Primary Care Provider: Gwen Garcia Other Interventions: Discharge Summary Assessment (RN) Last Done: 01/16/19 07:52 DC Date/Time DO NOT enter until pt leaves facility: 01/16/19 11:15
== END 2019-01-16 11:15 | disposition home health service (06) | DRG 470 ==
LOC: ASU 06:59 → 3E 12:11
DX: M16.12 Unilateral primary osteoarthritis, left hip; Z82.61 Family history of arthritis; Z79.899 Other long term (current) drug therapy